=== PATIENT | male | born 1990 | race Caucasian/White ===

== ENCOUNTER 2020-07-09 12:01 | Emergency (ER) | payer MEDICAID ==
[~2020-07-09] VITALS: Ht 190.5 cm; Wt 160.0 kg
[~2020-07-09 12:01] MED LIST: NO HOME MEDS
[2020-07-09 13:13] LABS: BASOPHILS % (AUTO) 0.3 % (0-1); EOSINOPHILS # (AUTO) 0.2 X10'3 (0-0.9); EOSINOPHILS % (AUTO) 1.7 % (0-6); HEMATOCRIT 48.9 % (42.0-52.0); HEMOGLOBIN 16.8 g/dl (14.0-17.9); LYMPHOCYTES # (AUTO) 1.4 X10'3 (1.1-4.8); LYMPHOCYTES % (AUTO) 14.5 % (21-51); MEAN CORPUSCULAR HEMOGLOBIN 30.8 PG (27.0-31.0); MEAN CORPUSCULAR HGB CONC 34.4 g/dL (33.0-36.5); MEAN CORPUSCULAR VOLUME 89.5 FL (78-98); MEAN PLATELET VOLUME 9.2 FL (7.4-10.4); MONOCYTES # (AUTO) 0.7 X10'3 (0-0.9); NEUTROPHILS # (AUTO) 7.1 X10'3 (1.8-7.7); NEUTROPHILS % (AUTO) 75.5 % (42-75); PLATELET COUNT 245 X10'3 (140-440); RED BLOOD COUNT 5.47 X10'6 (4.70-6.10); RED CELL DISTRIBUTION WIDTH 13.3 % (11.5-14.5); WHITE BLOOD COUNT 9.4 X10'3 (4.5-11.0)
[2020-07-09 13:27] LABS: ALANINE AMINOTRANSFERASE 60 U/L (12-78); ALBUMIN 4.3 G/DL (3.4-5.0); ALBUMIN/GLOBULIN RATIO 1.1 (1.1-1.5); ALKALINE PHOSPHATASE 66 IU/L (46-116); ANION GAP 12 (8-16); ASPARTATE AMINO TRANSFERASE 32 U/L (10-37); BILIRUBIN,TOTAL 0.5 MG/DL (0.1-1.0); BLOOD UREA NITROGEN 14 MG/DL (7-18); BUN/CREATININE RATIO 15.2 (5.4-32.0); C-REACTIVE PROTEIN 2.28 MG/DL (0.0-0.5); CALCIUM 9.4 MG/DL (8.5-10.1); CHLORIDE 106 MMOL/L (99-107); CREATININE 0.92 MG/DL (0.60-1.10); GLUCOSE 103 MG/DL (70-104); LACTATE DEHYDROGENASE 253 U/L (85-227); POTASSIUM 3.6 MMOL/L (3.5-5.1); SODIUM 145 MMOL/L (135-145); TOTAL CARBON DIOXIDE 27.5 MMOL/L (24-32); TOTAL PROTEIN 8.2 G/DL (6.4-8.2); eGFR > 90 ML/MIN
[2020-07-09 14:04] LABS: D-DIMER < 0.19 MG/L FEU (0-0.50)
[2020-07-09] MEDS ORDERED: PRED20TA PO (14:10)
[2020-07-09] MEDS ORDERED: ALBU8HFA PO (14:10)
[2020-07-09 14:40] VITALS: BP 168/112
--- NOTE | 2020-07-09 14:46 | NUR ---
Pt states he has been swabbed already in the tent prior to coming to main ER. Tent RN Galina reports she swabbed him.
== END 2020-07-09 14:46 | disposition home or self-care (01) ==
LOC: ER 12:02
DX: J06.9 Acute upper respiratory infection, unspecified (principal); R05 Cough; R06.02 Shortness of breath; Z20.828 Contact with and (suspected) exposure to other viral communicable diseases; G89.29 Other chronic pain; Z79.899 Other long term (current) drug therapy
CPT/HCPCS: 36415; 71045; 80053; 83605; 83615; 84145; 85025; 85379; 86140; 87040; 87635; 93005; 99285; C9803

== ENCOUNTER 2021-08-04 12:13 | Emergency (ER) | payer MEDICAID ==
[~2021-08-04] VITALS: Ht 190.5 cm; Wt 172.7 kg
[2021-08-04 12:43] VITALS: BP 164/84
[2021-08-04] MEDS ORDERED: CEPH250T PO (15:34)
== END 2021-08-04 16:02 | disposition home or self-care (01) ==
LOC: ER 12:13
DX: S80.01XA Contusion of right knee, initial encounter (principal); L03.115 Cellulitis of right lower limb; G89.29 Other chronic pain; Z79.2 Long term (current) use of antibiotics; Z79.899 Other long term (current) drug therapy; X58.XXXA Exposure to other specified factors, initial encounter; Y93.89 Activity, other specified; Y92.89 Other specified places as the place of occurrence of the external cause; Y99.8 Other external cause status
CPT/HCPCS: 73590; 99283

== ENCOUNTER 2021-08-07 15:56 | Emergency (ER) | payer MEDICAID ==
[~2021-08-07 15:56] MED LIST changes: +CEPH250T PO
== END 2021-08-07 17:25 | disposition left against medical advice (07) ==
LOC: ER 15:58
DX: M79.606 Pain in leg, unspecified (principal); Z53.21 Procedure and treatment not carried out due to patient leaving prior to being seen by health care provider

== ENCOUNTER 2021-08-08 09:02 | Emergency (ER) | payer MEDICAID ==
[~2021-08-08] VITALS: Ht 190.5 cm; Wt 172.7 kg
[2021-08-08 10:24] VITALS: BP 135/82
== END 2021-08-08 14:09 | disposition left against medical advice (07) ==
LOC: ER 09:03
DX: Z48.00 Encounter for change or removal of nonsurgical wound dressing (principal); Z53.21 Procedure and treatment not carried out due to patient leaving prior to being seen by health care provider

== ENCOUNTER 2021-08-12 07:03 | Emergency (ER) | payer MEDICAID ==
[~2021-08-12] VITALS: Ht 190.5 cm; Wt 191.0 kg
[2021-08-12 08:04] VITALS: BP 137/88
[2021-08-12 10:40] LABS: BASOPHILS # (AUTO) 0.1 X10'3 (0-0.2); BASOPHILS % (AUTO) 0.7 % (0-1); EOSINOPHILS # (AUTO) 0.5 X10'3 (0-0.9); EOSINOPHILS % (AUTO) 5.3 % (0-6); HEMATOCRIT 47.1 % (42.0-52.0); LYMPHOCYTES # (AUTO) 1.7 X10'3 (1.1-4.8); LYMPHOCYTES % (AUTO) 16.6 % (21-51); MEAN CORPUSCULAR HEMOGLOBIN 30.6 PG (27.0-31.0); MEAN CORPUSCULAR HGB CONC 33.9 g/dL (33.0-36.5); MEAN CORPUSCULAR VOLUME 90.2 FL (78-98); MEAN PLATELET VOLUME 9.2 FL (7.4-10.4); MONOCYTES # (AUTO) 0.5 X10'3 (0-0.9); MONOCYTES % (AUTO) 5.1 % (2-12); NEUTROPHILS # (AUTO) 7.3 X10'3 (1.8-7.7); NEUTROPHILS % (AUTO) 72.3 % (42-75); PLATELET COUNT 299 X10'3 (140-440); RED BLOOD COUNT 5.22 X10'6 (4.70-6.10); RED CELL DISTRIBUTION WIDTH 13.5 % (11.5-14.5); WHITE BLOOD COUNT 10.1 X10'3 (4.5-11.0)
[2021-08-12 10:47] LABS: ALANINE AMINOTRANSFERASE 52 U/L (12-78); ALBUMIN 4.3 G/DL (3.4-5.0); ALBUMIN/GLOBULIN RATIO 1.1 (1.1-1.5); ALKALINE PHOSPHATASE 72 IU/L (46-116); ANION GAP 11 (8-16); ASPARTATE AMINO TRANSFERASE 28 U/L (10-37); BILIRUBIN,TOTAL 1.1 MG/DL (0.1-1.0); BLOOD UREA NITROGEN 17 MG/DL (7-18); BUN/CREATININE RATIO 19.3 (5.4-32.0); CALCIUM 9.4 MG/DL (8.5-10.1); CHLORIDE 103 MMOL/L (99-107); CREATININE 0.88 MG/DL (0.60-1.10); GLUCOSE 101 MG/DL (70-104); MAGNESIUM 2.1 MG/DL (1.5-2.4); POTASSIUM 3.9 MMOL/L (3.5-5.1); SODIUM 141 MMOL/L (135-145); TOTAL CARBON DIOXIDE 27.1 MMOL/L (24-32); TOTAL PROTEIN 8.1 G/DL (6.4-8.2); eGFR > 90 ML/MIN
[2021-08-12] MEDS ORDERED: DOXY100C76 PO (11:18)
[2021-08-12] MEDS ORDERED: DOXYCYCLINE 100MG CAPSULE PO STA (11:26)
--- NOTE | 2021-08-12 11:36 | NUR ---
PT WISHES TO LEAVE AMA; STATES THAT HE WILL HAVE HIS DR [facility].
== END 2021-08-12 11:38 | disposition left against medical advice (07) ==
LOC: ER 07:03
DX: S80.11XA Contusion of right lower leg, initial encounter (principal); L03.115 Cellulitis of right lower limb; Z79.2 Long term (current) use of antibiotics; Z79.899 Other long term (current) drug therapy; G89.29 Other chronic pain; V89.2XXA Person injured in unspecified motor-vehicle accident, traffic, initial encounter; Y93.89 Activity, other specified; Y92.89 Other specified places as the place of occurrence of the external cause; Y99.8 Other external cause status
CPT/HCPCS: 36415; 80053; 83605; 83735; 84145; 85025; 87040; 93971; 99284

== ENCOUNTER 2021-08-13 07:06 | Emergency (ER) | payer MEDICAID ==
[2021-08-13] VITALS (10 sets, daily range): BP systolic 128–161; BP diastolic 48–92
[~2021-08-13] VITALS: Ht 190.5 cm; Wt 172.7 kg
[~2021-08-13 07:06] MED LIST changes: -CEPH250T PO; +DOXY100C76 PO
[2021-08-13] MEDS ORDERED: ceFAZolin 1GM/D5W- ADD-VANTAGE 50 ML IV ONE (07:50)
--- NOTE | 2021-08-13 08:12 | NUR ---
piv placed, labs drawn, covid swab sent. pt last food/water last night approx 2300. pain 10/16. awaiting surgery later today. no distress.
[2021-08-13 08:27] LABS: BASOPHILS % (AUTO) 0.4 % (0-1); EOSINOPHILS # (AUTO) 0.5 X10'3 (0-0.9); EOSINOPHILS % (AUTO) 4.8 % (0-6); HEMATOCRIT 43.6 % (42.0-52.0); HEMOGLOBIN 14.9 g/dl (14.0-17.9); LYMPHOCYTES # (AUTO) 1.4 X10'3 (1.1-4.8); LYMPHOCYTES % (AUTO) 14.5 % (21-51); MEAN CORPUSCULAR HEMOGLOBIN 30.8 PG (27.0-31.0); MEAN CORPUSCULAR HGB CONC 34.2 g/dL (33.0-36.5); MEAN PLATELET VOLUME 9.1 FL (7.4-10.4); MONOCYTES # (AUTO) 0.6 X10'3 (0-0.9); MONOCYTES % (AUTO) 6.2 % (2-12); NEUTROPHILS # (AUTO) 7.3 X10'3 (1.8-7.7); NEUTROPHILS % (AUTO) 74.1 % (42-75); PLATELET COUNT 283 X10'3 (140-440); RED BLOOD COUNT 4.84 X10'6 (4.70-6.10); RED CELL DISTRIBUTION WIDTH 13.5 % (11.5-14.5); WHITE BLOOD COUNT 9.8 X10'3 (4.5-11.0)
[2021-08-13 08:47] LABS: ALANINE AMINOTRANSFERASE 55 U/L (12-78); ALBUMIN 3.9 G/DL (3.4-5.0); ALBUMIN/GLOBULIN RATIO 1.1 (1.1-1.5); ALKALINE PHOSPHATASE 68 IU/L (46-116); ANION GAP 9 (8-16); ASPARTATE AMINO TRANSFERASE 30 U/L (10-37); BILIRUBIN,TOTAL 1.3 MG/DL (0.1-1.0); BLOOD UREA NITROGEN 16 MG/DL (7-18); BUN/CREATININE RATIO 18.2 (5.4-32.0); CALCIUM 8.9 MG/DL (8.5-10.1); CHLORIDE 105 MMOL/L (99-107); CREATININE 0.88 MG/DL (0.60-1.10); GLUCOSE 102 MG/DL (70-104); POTASSIUM 3.6 MMOL/L (3.5-5.1); SODIUM 142 MMOL/L (135-145); TOTAL CARBON DIOXIDE 27.8 MMOL/L (24-32); TOTAL PROTEIN 7.4 G/DL (6.4-8.2); eGFR > 90 ML/MIN
--- NOTE | 2021-08-13 09:58 | NUR ---
TELEPHONE REPORT TO FLYNN ROGEL. PT WILL GO UP TO OR THIS MORNING.
[2021-08-13] MEDS ORDERED: MIDAZolam 1mg/ml 10ml vial ONE (10:34)
[2021-08-13] MEDS ORDERED: fentaNYL /PF 50mcg/ml 5ml ampule ONE (10:34)
[2021-08-13] MEDS ORDERED: labetalol 20mg/4ml (5mg/ml) syringe IV PRN (10:35)
[2021-08-13] MEDS ORDERED: morphine 2 MG/ML inj. syringe IV PRN (10:35)
[2021-08-13] MEDS ORDERED: fentaNYL/PF 50MCG/1 ML 2ML syringe IV PRN ×2 (10:35)
[2021-08-13] MEDS ORDERED: hydrALAZINE 20mg/ml inj. IV PRN (10:35)
[2021-08-13] MEDS ORDERED: morphine 4 MG/ML inj SYRINge IV PRN (10:35)
[2021-08-13] MEDS ORDERED: bacitracin 15gm ointment TP ONE (10:35)
[2021-08-13] MEDS ORDERED: ondansetron/PF 4mg/2ml inj IV PRN (10:35)
[2021-08-13] MEDS ORDERED: ringers solution, lacted 1,000 ML IV SCH (10:35)
[2021-08-13] MEDS ORDERED: desflurane 240ml liquid inh. IH ONE (11:20)
[2021-08-13] MEDS ORDERED: propofol inj 20 ML IV ONE ×2 (11:24→11:34)
[2021-08-13] MEDS ORDERED: dexamethasone sod phosphate 4mg/ml inj. ONE (11:38)
[2021-08-13] MEDS ORDERED: ondansetron/PF 4mg/2ml inj ONE (11:38)
--- NOTE | 2021-08-13 12:00 | NUR ---
Received from OR via [facility] accompanied by Anesthesiologist KIMBERLY and report given by Anesthesiolgist. PT ARRIVES ON 10 L O2 VIA MASK. VSS. LR INFUSING IN R. FA IV AT 100 ML/HR. MOVES ALL EXTREMITIES. PALPABLE PULSES. R. LOWER LEG DRESSING ON OPEN WOUND, CDI, KERLIX, ABD. PAD AND WRAPPED WITH KERLIX. SOME PAIN NOTED. WILL PRN MEDICATE. PT. ALERT AND ORIENTED. Addendum: 08/13/21 at 1231 by Fara Obrien RN Amended: Links added.
== END 2021-08-13 14:00 | disposition home or self-care (01) ==
LOC: ER 07:07
DX: S80.11XA Contusion of right lower leg, initial encounter (principal); Z20.822 Contact with and (suspected) exposure to COVID-19; L02.415 Cutaneous abscess of right lower limb; G89.29 Other chronic pain; Z79.2 Long term (current) use of antibiotics; Z79.899 Other long term (current) drug therapy; X58.XXXA Exposure to other specified factors, initial encounter; Y93.89 Activity, other specified; Y92.89 Other specified places as the place of occurrence of the external cause
CPT/HCPCS: 10060; 36415; 80053; 85025; 87070; 87075; 87635; 96365; 96375; 99285; C9803; J0690; J1100; J2250; J2405; J2704; J3010; J7030; J7120; Z7506; Z7512; 99284; A4618; A6253; A6446; A7000